=== PATIENT | male | born 1985 | race Caucasian/White ===

== ENCOUNTER 2017-01-17 17:09 | Emergency (ER) | payer MEDICAID ==
[2017-01-17 17:43] VITALS: BP 168/111
--- NOTE | 2017-01-17 18:17 | EDM.PDOC ---
ED HPI Trauma - General Chief Complaint: Upper Extremity Injury/Pain Stated Complaint: RT SHOULDER HURTS Time Seen by Provider: 01/17/17 18:12 Source: Reports: Patient - History of Present Illness INITIAL COMMENTS - FREE TEXT/NARRATIVE: HISTORY AND PHYSICAL: History of present illness: [] Patient presents with history of right shoulder impingement syndrome, apparently this began after a nearly two-month stay in the ICU for an empyema. He denies any injury or trauma complains of 5/10 constant pain right shoulder Patient is followed by primary care and has began physical therapy is actually a second physical therapy visit. Patient has been on diclofenac He does have pain with abduction and external rotation as well as pain from about 70 to 120 which would be consistent, he also has weakness on forward extension compared to the left He has apparently been scheduled for MRI but missed his appointment No fever nausea vomiting chills sweats no chest pain shortness breath headache dizziness or palpitation no bowel or urine symptoms Review of systems: As per history of present illness and below otherwise all systems reviewed and negative. Past medical history: As per history of present illness and as reviewed below otherwise noncontributory. Surgical history: As per history of present illness and as reviewed below otherwise noncontributory. Social history: No reported history of drug or alcohol abuse. Family history: As per history of present illness and as reviewed below otherwise noncontributory. Physical exam: HEENT: Atraumatic, normocephalic, pupils reactive, negative for conjunctival pallor or scleral icterus, mucous membranes moist, throat clear, neck supple, nontender, trachea midline. Lungs: Clear to auscultation, breath sounds equal bilaterally, chest nontender. Heart: S1S2, regular, negative for clicks, rubs, or JVD. Abdomen: Soft, nondistended, nontender. Negative for masses or hepatosplenomegaly. Negative for costovertebral tenderness. Pelvis: Stable nontender. Genitourinary: Deferred. Rectal: Deferred. Extremities: Atraumatic, negative for cords or calf pain. Neurovascular unremarkable. Neuro: Awake, alert, oriented. Cranial nerves II through XII unremarkable. Cerebellum unremarkable. Motor and sensory unremarkable throughout. Exam nonfocal. Diagnostics: [] Therapeutics: [] Tramadol Ibuprofen Continue physical therapy Followup with primary care Reschedule MRI Impression: [] Right shoulder impingement syndrome Shoulder pain Definitive disposition and diagnosis as appropriate pending reevaluation and review of above. Allergies/ADRs: Allergies Sulfa (Sulfonamide Antibiotics) Allergy (Verified 01/17/17 17:36) Other Home Medications: Ambulatory Orders OLANZapine [Olanzapine] 01/17/17 Zolpidem [Ambien] 01/17/17 buPROPion [Wellbutrin XL] 01/17/17 hydrOXYzine HCl [Atarax] 01/17/17 Past Medical History HEENT History: Reports: None Cardiovascular History: Reports: None Respiratory History: Reports: Asthma Other Respiratory History: currently diagnosed with PN Gastrointestinal History: Reports: Hepatitis Genitourinary History: Reports: Other (see below) Other Genitourinary History: dysuria Neurological History: Reports: None Psychiatric History: Reports: Addiction, Anxiety, Depression Endocrine/Metabolic History: Reports: None Hematologic History: Reports: None Immunologic History: Reports: None Oncologic (Cancer) History: Reports: None Dermatologic History: Reports: Cellulitis, Other (see below) Other Dermatologic History: erythema from track nevarez (injecting meth) - Infectious Disease History Infectious Disease History: Reports: C-difficile, Hepatitis C - Past Surgical History Head Surgeries/Procedures: Reports: None Musculoskeletal Surgical History: Reports: Shoulder surgery Other Musculoskeletal Surgeries/Procedures:: old shoulder fracture of the right collarbone. Social & Family History - Family History Family Medical History: Noncontributory - Tobacco Use Smoking Status *Q: Current Every Day Smoker Years of Tobacco use: 15 Packs/Tins Daily: 0.5 - Caffeine Use Caffeine Use: Reports: Soda - Recreational Drug Use Recreational Drug Use: Yes Drug Use in Last 12 Months: Yes Recreational Drug Type: Reports: Marijuana/Hashish Recreational Drug Use Frequency: Daily Recreational Drug Last Use: Thursday - Living Situation & Occupation Occupation: unemployed (currently going to be traveling back to [facility] to move back in with his girlfriend, homeless at this time) Review of Systems - Review of Systems Review Of Systems: ROS reveals no pertinent complaints other than HPI. Trauma Exam - Physical Exam Exam: See Below Course - Vital Signs Last Recorded V/S: Last Vital Signs Temp 36.4 C 01/17/17 17:37 Pulse 122 H 01/17/17 17:37 Resp 18 01/17/17 17:37 BP 168/111 H 01/17/17 17:37 Pulse Ox 97 01/17/17 17:37 Departure - Departure Time of Disposition: 18:15 Disposition: Home, Self-Care 01 Condition: good Clinical Impression: Impingement syndrome of right shoulder Forms: ED Department Discharge Additional Instructions: Medications as prescribed Followup with primary care in 2 weeks, Ibuprofen 400 mg 3 times daily as needed call primary care on Thursday and reschedule MRI Continue with physical therapy The following information is given to patients seen in the emergency department who are being discharged to home. This information is to outline your options for follow-up care. We provide all patients seen in our emergency department with a follow-up referral. The need for follow-up, as well as the timing and circumstances, are variable depending upon the specifics of your emergency department visit. If you don't have a primary care physician on staff, we will provide you with a referral. We always advise you to contact your personal physician following an emergency department visit to inform them of the circumstance of the visit and for follow-up with them and/or the need for any referrals to a consulting specialist. The emergency department will also refer you to a specialist when appropriate. This referral assures that you have the opportunity for follow-up care with a specialist. All of these measure are taken in an effort to provide you with optimal care, which includes your follow-up. Under all circumstances we always encourage you to contact your private physician who remains a resource for coordinating your care. When calling for follow-up care, please make the office aware that this follow-up is from your recent emergency room visit. If for any reason you are refused follow-up, please contact the [facility] emergency department at and asked to speak to the emergency department charge nurse.
== END 2017-01-17 18:28 | disposition home or self-care (01) ==
LOC: MW.ED 17:09
DX: M75.41 Impingement syndrome of right shoulder (principal); J45.909 Unspecified asthma, uncomplicated; F41.9 Anxiety disorder, unspecified; F32.9 Major depressive disorder, single episode, unspecified; F17.210 Nicotine dependence, cigarettes, uncomplicated; Z88.2 Allergy status to sulfonamides
CPT/HCPCS: 99283

== ENCOUNTER → 2017-01-27 | Outpatient (CLI) | payer MEDICAID ==
--- NOTE | 2017-01-28 10:54 | CR ---
EXAM DATE: 01/27/17 PATIENT'S AGE: 31 Patient: DARRYL OATES Facility: [place], [place] Site . Site : 1985 Study: XRay Chest [id number] 4:34:15 PM Ordering Physician: Syed Ruiz Final Report: INDICATION: pyothorax without fistula TECHNIQUE: Chest 2 views COMPARISON: None FINDINGS: Cardiovascular and mediastinum: Heart size and vasculature are normal in caliber and appearance. Mediastinum is within normal limits. Lungs and pleural spaces: Blunting of the right costophrenic sulcus. No pneumothorax. Bones and soft tissues: No significant findings. IMPRESSION: Blunting of the right costophrenic sulcus. This may be related to a pleural effusion versus pleural reactive change. Dictated by Dani Llamas MD @ 01/27/2017 6:02:47 PM Dictated by: Dani Llamas MD @ 01/27/2017 18:02:54 (Electronic Signature) Report Signed by Proxy. [email or web address]
== END ==
LOC: MW.CHFP 15:59
PROVIDERS: ATTEND Family Medicine
DX: J86.9 Pyothorax without fistula (principal); R93.8 Abnormal findings on diagnostic imaging of other specified body structures
CPT/HCPCS: 71020; 71020-26